=== PATIENT | female | born 1950 | race Caucasian/White ===

== ENCOUNTER → 2016-12-22 | Day surgery (SDC) | payer OTHER ==
[2016-12-09 08:36] VITALS: Ht 157.5 cm; Wt 75.9 kg
[~2016-12-22] VITALS: Ht 157.5 cm; Wt 75.9 kg
[~2016-12-22] MED LIST: 500ML BSS 0.3ML EPI 1:1000PF IRRIG ONE; ACETAMINOPHEN 325 MG TAB PO PRN; ALBUAER INH; AMVISC PLUS 0.8ML SYRINGE INT OCU ONE; ATROPINE SULFATE 0.1 MG/ML 5ML SYR IV PRN; BROM0.07 OPL; BSS FLUSH ONE; CALC600T37 PO; CHOL20009 PO; EpHEDrine SULFATE INJ 50 MG/ML AMP IV PRN; EpINEphrine INJ 1MG/ML AMP 1 MG/ML AMP ONE; GABA-112 PO; GABA1CAP PO; LACTATED RINGER'S 1000ML 500 ML IV SCH; LEVA1.258 INH; LIDOCAINE 3.5% OPH GEL PER APPLICATION CHARGE ONE; LIDOCAINE HCL 1% MPF 2 ML VIAL ONE; LORA-741 PO; LORA10TA51 PO; LPT10 PO; MIDAZOLAM HCL 1 MG/ML 2ML VIAL ONE; OCUCOAT 1 ML SOLN IO ONE; PANT40TA PO; PHENYLEPHRINE HCL 10% OP SOLN 5 ML BTL OPL ONE; POVIDONE-IODINE OP SOLN 30 ML BTL ONE; PRED1SUS3 OPL; PROPARACAINE 0.5% OP SOLN PER DROP CHARGE OPL SCH; PROPARACAINE HCL 0.5% OP SOLN 15 ML BTL OPL ONE; SPRIN/30 INH; SYMIN160 INH; TOBRAMYCIN/DEXAMETHASONE OPH OINT PER APPLN CHARGE ONE
[2016-12-22] MEDS: GATIFLOXACIN OP SOLN PER DROP CHARGE OPL SCH ×2 (07:08→09:18)
--- NOTE | 2016-12-22 09:03 | History & Physical Bridge - [place] ---
H&P Re-Evaluation Bridge Note: I have examined the patient, reviewed the History & Physical and in the interval since the performance of the History & Physical I have noted the following changes of clinical significance: Diagnosis: Left Cataract Procedure: Left Cataract Removal with femtosecond laser with Lens Implant No changes noted
[2016-12-22] MEDS: PHENYLEPHRINE HCL 2.5% OP SOLN PER DROP CHARGE OPL SCH ×2 (09:04→09:10)
[2016-12-22] MEDS: TROPICAMIDE 1% OP SOLN PER DROP CHARGE OPL SCH ×2 (09:05→09:11)
[2016-12-22] MEDS: CYCLOPENTOLATE HCL 1% OP SOLN PER DROP CHARGE OPL SCH ×2 (09:06→09:12)
[2016-12-22] MEDS: KETOROLAC 0.5% OP SOLN PER DROP CHARGE OPL SCH ×2 (09:07→09:13)
--- NOTE | 2016-12-22 10:05 | Discharge Instructions-SurgCtr ---
Discharge Instructions Visit Reason for Visit: Cataract Left Eye Discharge Discharge Diagnosis / Problem: cataract Discharge Goals Goal(s): Improve function Activity Recommendations Activity Limitations: per Instructions/Follow-up section Anesthesia . Post Anesthesia Instructions: If you have had General Anesthesia or IV Sedation: * Do not drive today. * Resume driving when surgeon permits. * Do not make important decisions or sign legal documents today. * Call surgeon for: 1. Temperature elevations greater than 101 degrees F. 2. Uncontrollable pain. 3. Excessive bleeding. 4. Persistent nausea and vomiting. 5. Medication intolerance (nausea, vomiting or rash). * For nausea and vomiting use only clear liquids such as: tea, soda, bouillon until nausea subsides, then gradually increase diet as tolerated. * If you have any concerns or questions, call your surgeon's office. If physician is unavailable and it is an emergency, call 911 or go to the nearest emergency room. . Instructions / Follow-Up Instructions / Follow-Up ACTIVITY RECOMMENDATIONS: * No strenuous lifting, jogging or running for 4 days * No swimming or yard work for 1 week. * Limited bending is permitted, such as putting on shoes. RETURN TO SCHOOL/WORK: No work until seen by physician in office. MEDICATIONS: Resume previous medications unless instructed otherwise by your surgeon. This includes eye drops for glaucoma. Zymaxid/Gatifloxacin (barth cap) - one drop every 2 hours until bedtime Nevanac/Ilevro/Prolensa/Ketorolac (mims cap) - one drop every 4 hours until bedtime Prednisolone (white/pink cap, SHAKE WELL) - one drop every 2 hours until bedtime Starting tomorrow - all 3 drops every 4 hours until seen in the office Optive drops - as needed for discomfort SPECIAL CARE INSTRUCTIONS: * Wear eyeshield when sleeping, for four nights. * You may wear your own glasses or sunglasses while awake. * You may read or watch TV * You may shower and wash your face, but be gentle around the eye and pat dry. * Blurry vision and mild irritation are normal. * Call office if pain is more severe or vision becomes dark at . FOLLOW UP VISIT: Follow-up with Dr Dumont tomorrow. Procedures Procedures Performed: Left Cataract Phacoemulsification With Intraocular Lens Implant Pending Studies Studies pending at discharge: no Medical Emergencies . Who to Call and When: Medical Emergencies: If at any time you feel your situation is an emergency, please call 911 immediately. . Non-Emergent Contact Non-Emergency issues call your: Risk Specialist . . "Provider Documentation" section prepared by Derek Dumont.
--- NOTE | 2016-12-22 10:06 | [facility] Operative Report ---
Operative Report Date of Service Dec 22, 2016. Operative Report 1. PREOPERATIVE DIAGNOSIS: Cataract of the left eye. 2. POSTOPERATIVE DIAGNOSIS: Same. 3. PROCEDURE: Phacoemulsification with femtosecond laser intraocular lens implantation of the left eye. SURGEON: Dr. Derek Dumont. ANESTHESIA: Topical Lidocaine gel, 1% Non- Preserved intracameral Lidocaine, and monitored intravenous sedation. INDICATIONS FOR THE PROCEDURE: The patient is a 66 - year-old female with a history of cataract of the left eye causing significant visual impairment. The details of the proposed procedure were explained to the patient who asked appropriate questions and following discussion of all risks, benefits and alternatives agreed to have the procedure done. 4. OPERATION AND FINDINGS: DESCRIPTION OF PROCEDURE: After informed consent was obtained, the patient was brought to the Laser room at the [facility]. After docking with the LenSx Laser the capsulorhexis, lens chopping, and primary corneal incision were accomplished. The patient was brought to the Operating Room at the [facility]. The patient was placed in a supine position and then the left eye was prepped and draped in the usual sterile fashion for intraocular surgery. A drop of topical Lidocaine gel was placed in the operative eye. A wire lid speculum was then placed in the fornices. A corneal paracentesis was then created temporally. The Non-Preserved Lidocaine was then instilled into the anterior chamber. The anterior chamber was then pressurized with viscoelastic. A 2.0 mm clear corneal incision was then created temporally. A cystotome was inserted into the anterior chamber and used to verify a continuous curvilinear capsulorrhexis. Hydrodissection was accomplished with balanced salt solution. Phacoemulsification of the lens nucleus was then performed in a standard [id number] technique. The phaco time was 21 seconds with an average power of 6 %. The remaining cortical material was removed using irrigation aspiration. The capsular bag was then filled with viscoelastic. A Bausch [employer] Lomb MI60L +19.5 diopters lens was then loaded into the injector and injected into the capsular bag. The remaining viscoelastic was removed with the irrigation aspiration handpiece. The wound was hydrated and then checked and found to be watertight. The intraocular pressure was checked and found to be adequate. The wire lid speculum was removed and the patient's face was cleaned and dried. TobraDex ointment was placed in the inferior fornix. The patient was discharged to the Recovery Room having tolerated the procedure well. There were no complications. The patient will be seen tomorrow in the office for follow-up. I attest to the content of the Intraoperative Record and any orders documented therein. Any exceptions are noted below.
[2016-12-22 10:09] VITALS: TEMP 36.8
--- NOTE | 2016-12-22 10:12 | Anesthesia Progress Nt - [facility] ---
Anesthesia Post Op Note Date & Time Dec 22, 2016 at 10:12 Vital Signs Pain Intensity: 0 Vital Signs Past 12 Hours Date Time Temp Pulse Resp B/P Pulse Ox O2 Delivery O2 Flow Rate FiO2 12/22/16 10:09 36.8 77 16 122/80 100 Room Air 12/22/16 09:35 68 16 111/81 97 12/22/16 09:28 68 16 96 12/22/16 08:31 36.7 87 16 118/81 96 Room Air Notes Mental Status: alert / awake / arousable, participated in evaluation Pt Amnestic to Procedure: Yes Nausea / Vomiting: adequately controlled Pain: adequately controlled Airway Patency, RR, SpO2: stable & adequate BP & HR: stable & adequate Hydration State: stable & adequate Anesthetic Complications: no major complications apparent
[2016-12-22 10:31] VITALS: BP 122/71; PULSE 83; O2SAT 98
== END | disposition home or self-care (01) ==
LOC: X.SURG 08:21
PROVIDERS: ATTEND Ophthalmology
DX: H26.9 Unspecified cataract (principal); H54.7 Unspecified visual loss; K21.9 Gastro-esophageal reflux disease without esophagitis; J45.909 Unspecified asthma, uncomplicated; G25.81 Restless legs syndrome; F41.9 Anxiety disorder, unspecified; E78.5 Hyperlipidemia, unspecified

== ENCOUNTER → 2016-12-28 | Outpatient (CLI) | payer OTHER ==
[~2016-12-28] MED LIST changes: -500ML BSS 0.3ML EPI 1:1000PF IRRIG ONE; -ACETAMINOPHEN 325 MG TAB PO PRN; -AMVISC PLUS 0.8ML SYRINGE INT OCU ONE; -ATROPINE SULFATE 0.1 MG/ML 5ML SYR IV PRN; -BSS FLUSH ONE; -EpHEDrine SULFATE INJ 50 MG/ML AMP IV PRN; -EpINEphrine INJ 1MG/ML AMP 1 MG/ML AMP ONE; -LACTATED RINGER'S 1000ML 500 ML IV SCH; -LIDOCAINE 3.5% OPH GEL PER APPLICATION CHARGE ONE; -LIDOCAINE HCL 1% MPF 2 ML VIAL ONE; -MIDAZOLAM HCL 1 MG/ML 2ML VIAL ONE; -OCUCOAT 1 ML SOLN IO ONE; -PHENYLEPHRINE HCL 10% OP SOLN 5 ML BTL OPL ONE; -POVIDONE-IODINE OP SOLN 30 ML BTL ONE; -PROPARACAINE 0.5% OP SOLN PER DROP CHARGE OPL SCH; -PROPARACAINE HCL 0.5% OP SOLN 15 ML BTL OPL ONE; -TOBRAMYCIN/DEXAMETHASONE OPH OINT PER APPLN CHARGE ONE
== END | disposition home or self-care (01) ==
LOC: C.MAMM 10:16
PROVIDERS: ATTEND Family Medicine
DX: M85.851 Other specified disorders of bone density and structure, right thigh (principal); M85.852 Other specified disorders of bone density and structure, left thigh; M85.88 Other specified disorders of bone density and structure, other site

== ENCOUNTER → 2017-01-19 | Day surgery (SDC) | payer OTHER ==
[2016-12-30 15:51] VITALS: Ht 157.5 cm; Wt 75.9 kg
[~2017-01-19] VITALS: Ht 157.5 cm; Wt 75.9 kg
[~2017-01-19] MED LIST changes: +500ML BSS 0.3ML EPI 1:1000PF IRRIG ONE; +ACETAMINOPHEN 325 MG TAB PO PRN; +AMVISC PLUS 0.8ML SYRINGE INT OCU ONE; +ATROPINE SULFATE 0.1 MG/ML 5ML SYR IV PRN; +BSS FLUSH ONE; +EpHEDrine SULFATE INJ 50 MG/ML AMP IV PRN; +EpINEphrine INJ 1MG/ML AMP 1 MG/ML AMP ONE; +FENTANYL CITRATE INJ 50 MCG/1 ML 2 ML VIAL IV PRN; +FLUMAZENIL 0.1 MG/1 ML 10 ML VIAL IV PRN; +LABETALOL HCL IV 5 MG/ML 20ML IV PRN; +LACTATED RINGER'S 1000ML 500 ML IV SCH; +LIDOCAINE 3.5% OPH GEL PER APPLICATION CHARGE ONE; +LIDOCAINE HCL 1% MPF 2 ML VIAL ONE; +MEPERIDINE HCL 25 MG/ML CARP IV PRN; +MIDAZOLAM HCL 1 MG/ML 2ML VIAL ONE; +NALOXONE HCL 0.4 MG/1 ML VIAL/CARP IV PRN; +OCUCOAT 1 ML SOLN IO ONE; +ONDANSETRON INJ 2 MG/ML 2 ML VIAL IV PRN; +PHENYLEPHRINE 100MCG/ML 5ML SYR IV PRN; +POVIDONE-IODINE OP SOLN 30 ML BTL ONE; +PROPARACAINE 0.5% OP SOLN PER DROP CHARGE OPR SCH; +TOBRAMYCIN/DEXAMETHASONE OPH OINT PER APPLN CHARGE ONE
[2017-01-19] MEDS: PHENYLEPHRINE HCL 2.5% OP SOLN PER DROP CHARGE OPR SCH ×2 (10:11→10:16)
[2017-01-19] MEDS: TROPICAMIDE 1% OP SOLN PER DROP CHARGE OPR SCH ×2 (10:13→10:17)
[2017-01-19] MEDS: CYCLOPENTOLATE HCL 1% OP SOLN PER DROP CHARGE OPR SCH ×2 (10:13→10:18)
[2017-01-19] MEDS: KETOROLAC 0.5% OP SOLN PER DROP CHARGE OPR SCH ×2 (10:14→10:19)
[2017-01-19] MEDS: GATIFLOXACIN OP SOLN PER DROP CHARGE OPR SCH ×2 (10:15→10:23)
--- NOTE | 2017-01-19 10:44 | History & Physical Bridge - [place] ---
H&P Re-Evaluation Bridge Note: I have examined the patient, reviewed the History & Physical and in the interval since the performance of the History & Physical I have noted the following changes of clinical significance: No changes noted
--- NOTE | 2017-01-19 11:29 | [facility] Operative Report ---
Operative Report Date of Service Jan 19, 2017. Operative Report 1. PREOPERATIVE DIAGNOSIS: Cataract of the right eye. 2. POSTOPERATIVE DIAGNOSIS: Same. 3. PROCEDURE: Phacoemulsification with intraocular lens implantation of the right eye. SURGEON: Dr. Derek Dumont. ANESTHESIA: Topical Lidocaine gel, 1% Non- Preserved intracameral Lidocaine, and monitored intravenous sedation. INDICATIONS FOR THE PROCEDURE: The patient is a 66 - year-old female with a history of cataract of the right eye causing significant visual impairment. The details of the proposed procedure were explained to the patient who asked appropriate questions and following discussion of all risks, benefits and alternatives agreed to have the procedure done. 4. OPERATION AND FINDINGS: DESCRIPTION OF PROCEDURE: After informed consent was obtained, the patient was brought to the Operating Room at the [facility] [address]. The patient was placed in a supine position and then the right eye was prepped and draped in the usual sterile fashion for intraocular surgery. A drop of topical Lidocaine gel was placed in the operative eye. A wire lid speculum was then placed in the fornices. A corneal paracentesis was then created temporally. The Non-Preserved Lidocaine was then instilled into the anterior chamber. The anterior chamber was then pressurized with viscoelastic. A 2.0 mm clear corneal incision was then created temporally. A cystotome was inserted into the anterior chamber and used to create a tear in the anterior lens capsule. This capsular tear was then used to create a small flap and the flap was dragged in a counterclockwise direction in order to create a continuous curvilinear capsulorrhexis. Hydrodissection was accomplished with balanced salt solution. Phacoemulsification of the lens nucleus was then performed in a standard [id number]-[id number] technique. The phaco time was 19 seconds with an average power of 7 %. The remaining cortical material was removed using irrigation aspiration. The capsular bag was then filled with viscoelastic. A Bausch & Lomb MI60L +20.0 diopters lens was then loaded into the injector and injected into the capsular bag. The remaining viscoelastic was removed with the irrigation aspiration handpiece. The wound was hydrated and then checked and found to be watertight. The intraocular pressure was checked and found to be adequate. The wire lid speculum was removed and the patient's face was cleaned and dried. TobraDex ointment was placed in the inferior fornix. The patient was discharged to the Recovery Room having tolerated the procedure well. There were no complications. The patient will be seen tomorrow in the office for follow-up. I attest to the content of the Intraoperative Record and any orders documented therein. Any exceptions are noted below.
--- NOTE | 2017-01-19 11:29 | Discharge Instructions-SurgCtr ---
Discharge Instructions Date of Service Jan 19, 2017. Visit Reason for Visit: Cataract Right Eye Discharge Discharge Diagnosis / Problem: cataract Discharge Goals Goal(s): Improve function Activity Recommendations Activity Limitations: per Instructions/Follow-up section Anesthesia . Post Anesthesia Instructions: If you have had General Anesthesia or IV Sedation: * Do not drive today. * Resume driving when surgeon permits. * Do not make important decisions or sign legal documents today. * Call surgeon for: 1. Temperature elevations greater than 101 degrees F. 2. Uncontrollable pain. 3. Excessive bleeding. 4. Persistent nausea and vomiting. 5. Medication intolerance (nausea, vomiting or rash). * For nausea and vomiting use only clear liquids such as: tea, soda, bouillon until nausea subsides, then gradually increase diet as tolerated. * If you have any concerns or questions, call your surgeon's office. If physician is unavailable and it is an emergency, call 911 or go to the nearest emergency room. . Instructions / Follow-Up Instructions / Follow-Up ACTIVITY RECOMMENDATIONS: * No strenuous lifting, jogging or running for 4 days * No swimming or yard work for 1 week. * Limited bending is permitted, such as putting on shoes. RETURN TO SCHOOL/WORK: No work until seen by physician in office. MEDICATIONS: Resume previous medications unless instructed otherwise by your surgeon. This includes eye drops for glaucoma. Zymaxid/Gatifloxacin (barth cap) - one drop every 2 hours until bedtime Nevanac/Ilevro/Prolensa/Ketorolac (mims cap) - one drop every 4 hours until bedtime Prednisolone (white/pink cap, SHAKE WELL) - one drop every 2 hours until bedtime Starting tomorrow - all 3 drops every 4 hours until seen in the office Optive drops - as needed for discomfort SPECIAL CARE INSTRUCTIONS: * Wear eyeshield when sleeping, for four nights. * You may wear your own glasses or sunglasses while awake. * You may read or watch TV * You may shower and wash your face, but be gentle around the eye and pat dry. * Blurry vision and mild irritation are normal. * Call office if pain is more severe or vision becomes dark at . FOLLOW UP VISIT: Follow-up with Dr Dumont tomorrow. Diet Recommendations Home Diet: resume previous diet Procedures Procedures Performed: Right Cataract Phacoemulsification With Intraocular Lens Implant Pending Studies Studies pending at discharge: no Medical Emergencies . Who to Call and When: Medical Emergencies: If at any time you feel your situation is an emergency, please call 911 immediately. . Non-Emergent Contact Non-Emergency issues call your: Pta . . "Provider Documentation" section prepared by Derek Dumont.
[2017-01-19 11:31] VITALS: TEMP 36.7
--- NOTE | 2017-01-19 11:49 | Anesthesia Progress Nt - [facility] ---
Anesthesia Post Op Note Date & Time Jan 19, 2017 at 11:49 Vital Signs Pain Intensity: 0 Vital Signs Past 12 Hours Date Time Temp Pulse Resp B/P Pulse Ox O2 Delivery O2 Flow Rate FiO2 01/19/17 10:05 36.4 96 20 117/76 95 Room Air Notes Mental Status: alert / awake / arousable, participated in evaluation Pt Amnestic to Procedure: Yes Nausea / Vomiting: adequately controlled Pain: adequately controlled Airway Patency, RR, SpO2: stable & adequate BP & HR: stable & adequate Hydration State: stable & adequate Anesthetic Complications: no major complications apparent
[2017-01-19 12:00] VITALS: BP 129/81; PULSE 84; O2SAT 96
== END | disposition home or self-care (01) ==
LOC: X.SURG 09:52
PROVIDERS: ATTEND Ophthalmology
DX: H26.9 Unspecified cataract (principal); J45.909 Unspecified asthma, uncomplicated; M19.90 Unspecified osteoarthritis, unspecified site; Z98.42 Cataract extraction status, left eye; F41.9 Anxiety disorder, unspecified; Z88.5 Allergy status to narcotic agent; Z88.1 Allergy status to other antibiotic agents; Z68.30 Body mass index [BMI] 30.0-30.9, adult

== ENCOUNTER → 2017-02-10 | Outpatient (CLI) | payer OTHER ==
[~2017-02-10] MED LIST changes: -500ML BSS 0.3ML EPI 1:1000PF IRRIG ONE; -ACETAMINOPHEN 325 MG TAB PO PRN; -AMVISC PLUS 0.8ML SYRINGE INT OCU ONE; -ATROPINE SULFATE 0.1 MG/ML 5ML SYR IV PRN; -BSS FLUSH ONE; -EpHEDrine SULFATE INJ 50 MG/ML AMP IV PRN; -EpINEphrine INJ 1MG/ML AMP 1 MG/ML AMP ONE; -FENTANYL CITRATE INJ 50 MCG/1 ML 2 ML VIAL IV PRN; -FLUMAZENIL 0.1 MG/1 ML 10 ML VIAL IV PRN; -LABETALOL HCL IV 5 MG/ML 20ML IV PRN; -LACTATED RINGER'S 1000ML 500 ML IV SCH; -LIDOCAINE 3.5% OPH GEL PER APPLICATION CHARGE ONE; -LIDOCAINE HCL 1% MPF 2 ML VIAL ONE; -MEPERIDINE HCL 25 MG/ML CARP IV PRN; -MIDAZOLAM HCL 1 MG/ML 2ML VIAL ONE; -NALOXONE HCL 0.4 MG/1 ML VIAL/CARP IV PRN; -OCUCOAT 1 ML SOLN IO ONE; -ONDANSETRON INJ 2 MG/ML 2 ML VIAL IV PRN; -PHENYLEPHRINE 100MCG/ML 5ML SYR IV PRN; -POVIDONE-IODINE OP SOLN 30 ML BTL ONE; -PROPARACAINE 0.5% OP SOLN PER DROP CHARGE OPR SCH; -TOBRAMYCIN/DEXAMETHASONE OPH OINT PER APPLN CHARGE ONE
[2017-02-10 19:43] LABS: THYROID STIMULATING HORMONE 0.05 uIu/ml (0.300-4.500)
== END | disposition home or self-care (01) ==
LOC: C.LABPBG 12:47
PROVIDERS: ATTEND Family Medicine
DX: R94.6 Abnormal results of thyroid function studies (principal)

== ENCOUNTER → 2017-03-03 | Outpatient (CLI) | payer OTHER ==
[2017-03-03 18:13] LABS: ALKALINE PHOSPHATASE 111 U/L (45-117); ALT/SGPT 34 U/L (12-78); AST/SGOT 24 U/L (15-37); BLOOD UREA NITROGEN 19 mg/dl (7-18); CARBON DIOXIDE 29 mmol/L (21-32); CHLORIDE 109 mmol/L (98-107); FERRITIN 81.5 ng/ml (8.0-388.0); GLUCOSE 86 mg/dl (70-99); HDL CHOLESTEROL 61 mg/dl; POTASSIUM 4.2 mmol/L (3.5-5.1); SODIUM 144 mmol/L (136-145); TRIGLYCERIDES 204 mg/dl (0-150); VERY LOW DENSITY LIPOPROT CALC 41 mg/dl
[2017-03-03 18:14] LABS: BASO % 0.7 %; BASO ABS # 0.04 K/uL (0-0.2); COMPLETE YES; HEMATOCRIT 39.2 % (37-47); IG% 0.7 %; LYMPH % 34.9 %; MEAN CELL VOLUME 84.5 fL (80-100); MEAN CORPUSCULAR HEMOGLOBIN 28.4 pg (25-34); MEAN CORPUSCULAR HGB CONC 33.7 g/dl (32-36); MEAN PLATELET VOLUME 9.4 fL (7.4-10.4); MONO % 8.6 %; NEUT % 51.1 %; PLATELET COUNT 263 K/uL (130-400); RED BLOOD COUNT 4.64 M/uL (4.2-5.4); WHITE BLOOD COUNT 5.45 K/uL (4.8-10.8)
[2017-03-03 18:18] LABS: CHOLESTEROL 176 mg/dl (0-200); CHOLESTEROL/HDL RATIO 2.9; LDL CHOLESTEROL CALCULATED 74 mg/dl; THYROID STIMULATING HORMONE 0.082 uIu/ml (0.300-4.500)
--- NOTE | 2017-03-09 11:19 | CODING QUERY MEDICAL NECESSITY ---
CQSUPPORTING DIAGNOSIS NEEDED A supporting diagnosis is required for the test/procedure performed on this patient in order for us to be reimbursed by the patient's insurance. Please provide a supporting diagnosis for the following test/procedure listed below next to the test name along with your signature. *If there is no additional diagnosis for this patient that would support the following test/procedure please document that below next to the test/procedure. Test(s)/Procedure(s) that require a supporting diagnosis: DOS 03/03/17 VITAMIN D VITAMIN B12 Provider Signature: Date: Thank you Hallie Preciado Health Information Management Once completed, please kindly fax back to [phone] For questions please call [phone]
== END | disposition home or self-care (01) ==
LOC: C.LABPBG 11:30
PROVIDERS: ATTEND Family Medicine
DX: Z00.00 Encounter for general adult medical examination without abnormal findings (principal); R94.6 Abnormal results of thyroid function studies; M85.80 Other specified disorders of bone density and structure, unspecified site; G25.81 Restless legs syndrome; E55.9 Vitamin D deficiency, unspecified; G62.9 Polyneuropathy, unspecified

== ENCOUNTER → 2017-04-14 | Outpatient (CLI) | payer OTHER ==
[2017-04-14 12:32] LABS: THYROID STIMULATING HORMONE 0.574 uIu/ml (0.300-4.500)
[2017-04-17 19:09] LABS: TSI 512 % baseline (<140)
== END | disposition home or self-care (01) ==
LOC: C.LAB1850 10:10
PROVIDERS: ATTEND Internal Medicine Endocrinology, Diabetes & Metabolism
DX: E05.90 Thyrotoxicosis, unspecified without thyrotoxic crisis or storm (principal); E53.8 Deficiency of other specified B group vitamins

== ENCOUNTER → 2017-04-26 | Outpatient (CLI) | payer OTHER ==
[2017-04-26 17:54] LABS: THYROID STIMULATING HORMONE 0.818 uIu/ml (0.300-4.500)
== END | disposition home or self-care (01) ==
LOC: C.LABPBG 14:32
PROVIDERS: ATTEND Internal Medicine Endocrinology, Diabetes & Metabolism
DX: E05.00 Thyrotoxicosis with diffuse goiter without thyrotoxic crisis or storm (principal)

== ENCOUNTER → 2017-06-23 | Outpatient (CLI) | payer OTHER ==
[2017-06-23 13:22] LABS: MAGNESIUM 2.1 mg/dl (1.8-2.4); PHOSPHORUS 3.5 mg/dl (2.5-4.9)
[2017-06-24 14:57] LABS: GAMMA GLOBULIN 1.1 G/DL (0.8-1.7); TOTAL PROTEIN 6.8 G/DL (6.2-8.3)
== END | disposition home or self-care (01) ==
LOC: C.LAB1850 09:54
PROVIDERS: ATTEND Internal Medicine Endocrinology, Diabetes & Metabolism
DX: E05.90 Thyrotoxicosis, unspecified without thyrotoxic crisis or storm (principal); M85.80 Other specified disorders of bone density and structure, unspecified site; R05 Cough

== ENCOUNTER → 2017-06-23 | Outpatient (CLI) | payer OTHER ==
--- NOTE | 2017-06-23 12:21 | DIAGNOSTIC IMAGING REPORT ---
CHEST 2 VIEWS ROUTINE HISTORY: COUGH COMPARISON: Chest 09/25/2016. FINDINGS: Small linear density within left midlung zone favor scarring or atelectasis. Possible 9 mm right suprahilar nodule. No focal lung consolidations to suggest pneumonia. No evidence for pulmonary edema.. No pleural effusions. No pneumothorax. The heart is normal in size. IMPRESSION: 1. No focal lung consolidations to suggest pneumonia. 2. Possible 9 mm right suprahilar nodule. This is likely due to the overlapping pulmonary vessels. Therefore, recommend follow-up PA view of the chest with shallow oblique views for further evaluation. Electronically signed by: Jones Canseco M.D. 06/23/2017 12:19 PM Dictated Date/Time: 06/23/2017 12:14 PM
== END | disposition home or self-care (01) ==
LOC: C.RAD1850 11:57
PROVIDERS: ATTEND Physician Assistant
DX: R05 Cough (principal)

== ENCOUNTER → 2017-06-25 | Outpatient (CLI) | payer OTHER ==
[2017-06-25 14:13] LABS: CALCIUM URINE < 5.0 mg/dl; URINE COLLECTION TIME 24 HOURS
== END | disposition home or self-care (01) ==
LOC: C.LABSPEC 09:21
PROVIDERS: ATTEND Internal Medicine Endocrinology, Diabetes & Metabolism
DX: M85.80 Other specified disorders of bone density and structure, unspecified site (principal)

== ENCOUNTER → 2017-07-19 | Outpatient (CLI) | payer OTHER ==
--- NOTE | 2017-07-19 12:23 | DIAGNOSTIC IMAGING REPORT ---
CHEST 2 VIEWS ROUTINE HISTORY: 66 years-old Female ABNORMAL CHEST XRAY follow-up study without acute symptoms. Pulmonary nodule seen on comparison dated 06/23/2017. COMPARISON: Chest radiograph 06/23/2017 TECHNIQUE: PA and lateral views of the chest FINDINGS: Cardiac silhouette is upper limits of normal. There is atherosclerosis of the aorta. No pneumothorax, pleural effusion or focal airspace consolidation. No overt pulmonary edema. Previously noted 9 mm right suprahilar nodular opacity appears less discrete on today's study. The bones are grossly intact. IMPRESSION: Previously noted 9 mm right suprahilar nodular opacity appears less discrete on today's study and appears most compatible with linear parenchymal scarring or composite density artifact. In a high-risk patient, further evaluation with chest CT may be considered. The above report was generated using voice recognition software. It may contain grammatical, syntax or spelling errors. Electronically signed by: Ortega Rios M.D. 07/19/2017 12:21 PM Dictated Date/Time: 07/19/2017 12:19 PM
== END | disposition home or self-care (01) ==
LOC: C.RAD1850 11:48
PROVIDERS: ATTEND Physician Assistant
DX: R93.8 Abnormal findings on diagnostic imaging of other specified body structures (principal)

== ENCOUNTER → 2017-08-05 | Outpatient (CLI) | payer OTHER | END | disposition home or self-care (01) | LOC: C.LABPBG 13:46 | PROVIDERS: ATTEND Internal Medicine Endocrinology, Diabetes & Metabolism | DX: E05.00 Thyrotoxicosis with diffuse goiter without thyrotoxic crisis or storm (principal) ==

== ENCOUNTER → 2017-12-17 | Outpatient (CLI) | payer OTHER ==
[~2017-12-17] MED LIST changes: +GABA100C13 PO; -GABA1CAP PO
== END | disposition home or self-care (01) ==
LOC: C.LABPBG 12:06
PROVIDERS: ATTEND Internal Medicine
DX: R94.6 Abnormal results of thyroid function studies (principal)

== ENCOUNTER → 2018-02-08 | Outpatient (CLI) | payer OTHER ==
--- NOTE | 2018-02-08 13:17 | DIAGNOSTIC IMAGING REPORT ---
CHEST 2 VIEWS ROUTINE CLINICAL HISTORY: R05 [id number] dyspnea COMPARISON STUDY: 07/19/2017 FINDINGS: The lungs are considered clear. Mild chronic basilar interstitial prominence. Unchanging focal linear scar right suprahilar region. Mild degenerative changes thoracic spine. IMPRESSION: Chronic change. No acute process. The above report was generated using voice recognition software. It may contain grammatical, syntax or spelling errors. Electronically signed by: Zoran Zuniga M.D. 02/08/2018 1:16 PM Dictated Date/Time: 02/08/2018 1:15 PM
== END | disposition home or self-care (01) ==
LOC: C.RAD1850 13:00
PROVIDERS: ATTEND Physician Assistant
DX: R05 Cough (principal)

== ENCOUNTER → 2018-02-28 | Outpatient (CLI) | payer OTHER | END | disposition home or self-care (01) | LOC: C.LAB1850 14:16 | PROVIDERS: ATTEND Internal Medicine Endocrinology, Diabetes & Metabolism | DX: E55.9 Vitamin D deficiency, unspecified (principal); E05.00 Thyrotoxicosis with diffuse goiter without thyrotoxic crisis or storm ==

== ENCOUNTER → 2018-05-18 | Outpatient (CLI) | payer OTHER ==
[~2018-05-18] MED LIST changes: +GABA-1693 PO; -GABA100C13 PO
== END | disposition home or self-care (01) ==
LOC: C.LABSPEC 17:11
PROVIDERS: ATTEND Podiatrist Foot & Ankle Surgery
DX: L97.509 Non-pressure chronic ulcer of other part of unspecified foot with unspecified severity (principal)

== ENCOUNTER 2020-05-14 14:27 | Inpatient (IN) ==
[2020-05-14] MEDS ORDERED: ALBUT/IPRATROP 3MG/0.5MG NEB 3 ML VIAL NEB STA ×2 (14:41→15:51)
[2020-05-14] MEDS ORDERED: methylPREDNISolone 125 MG/2 ML VIAL IV STA (14:41)
--- NOTE | 2020-05-14 14:56 | Emergency Department Note ---
Impression & Plan Asthma exacerbation ED Provider Note NAME: KALEB ROCA AGE: 69 SEX: F : 1950 ARRIVES VIA: Walk-In INFORMANT: Patient, ED PROVIDER(S): Johnny Ch DO CHIEF COMPLAINT: Shortness of breath HPI: The patient is a 69-year-old female who has a history of asthma who presented to the emergency department at the request of her primary rehab spec. The patient states that she has been having increasing shortness of breath over the last 2 to 3 weeks. She is been noticing a cough which is nonproductive. She denies having any fever or travel. She is had no specific exposure to COVID-19. The patient has not recently been on steroids. She states that she has been using her usual inhalers with only minimal relief. She denies having any nausea or vomiting. She denies having any chest pain. She has no lower extremity swelling or pain. She states symptoms are worsened with any exertion. She states she does have some relief at rest. The patient states her symptoms are moderate to severe at this time. ROS: See above HPI for pertinent positives & negatives. A total of 10 systems reviewed and were otherwise negative. PAST MEDICAL HISTORY: See Below PAST SURGICAL HISTORY: See Below FAMILY HISTORY: See Below SOCIAL HISTORY: See Below HOME MEDICATIONS: See Below ALLERGIES: See Below VITALS: See Below PHYSICAL EXAMINATION: GENERAL: The patient is awake and alert. She is somewhat anxious appearing. EYES: The conjunctivae are clear. The pupils are round and reactive. EARS, NOSE, MOUTH AND THROAT: The nose is without any evidence of any deformity. The patient was masked. NECK: The neck is nontender and supple. RESPIRATORY: Shallow respirations were noted. Diminished breath sounds noted throughout. There was significant conversational dyspnea as well as pursed lip breathing. CARDIOVASCULAR: Regular rate and rhythm noted there no murmurs rubs or gallops normal S1 normal S2. GASTROINTESTINAL: The abdomen is soft. Abdomen is nontender. MUSCULOSKELETAL/EXTREMITIES: There is no evidence of gross deformity full range of motion is noted in the hips and shoulders. SKIN: There is no obvious evidence of any rash. There are no petechiae, pallor or cyanosis noted. No calf tenderness was noted. NEUROLOGIC: Patient is awake alert and oriented x3. MEDICAL DECISION MAKING: The patient is a 69-year-old female who presented to the emergency department for an evaluation of difficulty breathing. The patient has a history of asthma and felt that over the last week and a half she was having an exacerbation of her asthma. She presented to her rehab spec initially for her routine scheduled visit and at that time was found to have severe dyspnea and bronchospasm. She was sent directly to the emergency department. I did review the rehab spec note. The patient was treated with bronchodilator therapy as well as IV steroids. Chest x-ray revealed no acute disease including no infiltrate or pneumothorax. The patient was reevaluated multiple times. Initially she was having very severe conversational dyspnea and pursed lip breathing. She continues to have some symptoms but is significantly improved compared to previous. I discussed the patient's laboratory and radiographic studies with her. [facility] was also notified about the patient. They will evaluate the patient in the emergency department for further management and disposition. Triage Nursing notes reviewed. Prior medical records reviewed Vital Signs: reviewed and remarkable for hypertension and tachypnea. Differential diagnosis: Reactive airway disease, pneumonia, pneumothorax, COPD, CHF, infections, cardiac ischemia, pulmonary embolism, musculoskeletal, gastrointestinal, as well as other pathologies. ER treatment provided: See below Diagnostics interpreted by me: ECG: EKG was obtained in the emergency department. My interpretation is normal sinus rhythm at 71 bpm. There is no ectopy. There is no acute ST segment abnormalities noted. This was compared to a tracing from September 04, 2016. No significant changes were noted. Cardiac Monitoring: An order was placed for continuous cardiac monitoring. The monitor shows a rate of 88 with sinus rhythm. Laboratory studies: As stated above and show below. Imaging studies: See below Consultation(s): 1640: [facility] hospitalist group was notified about the patient. ED COURSE: Procedures: none PDMP:reviewed and no issues Critical Care: None Past Med/Surg History Medical History Adjustment disorder with depressed mood (Chronic) Arthritis, multiple joint involvement Asthmatic bronchitis with acute exacerbation (Inactive) Colon polyps Dyslipidemia (Chronic) Graves disease (Acute) Sanaz's thyroiditis History of actinic keratosis History of hyperglycemia History of nasal polyp History of sinusitis Hypothyroidism (Chronic) Impaired fasting glucose (Chronic) Osteopenia after menopause (Chronic) Peripheral neuropathy (Chronic) Restless legs syndrome (Chronic) Severe persistent asthma (Chronic) Tachycardia (Inactive) Vitamin B12 deficiency (non anemic) (Chronic) Vitamin D deficiency (Chronic) Surgical History History of bronchoscopy h/o bronchial thermoplasty History of bunionectomy Status post nasal endoscopy with nasal polypectomy Family History Father Myocardial infarction Other Asthma Denies family history of Breast cancer Social History Smoking Status: Never smoker Hx Alcohol Use: No Hx Substance Use: No Preferred Language: [place] Communication Ability: Effective Visual Impairment: No Limitations Hearing Ability: Normal Senior Planning Manager Required: No Beliefs That Will Affect Care: None marital status: / Current Living Situation: Other Current Living Situation Comment: [facility] WITH HER current occupational status: retired Feels Safe at Home: Yes Safety Concerns Comment: NONE Childhood Exposure to Second-Hand Smoke: Yes Seatbelt Use: always Allergies Allergies Allergy/AdvReac Type Severity Reaction Status Date / Time codeine Allergy Intermediate Hives Verified 05/14/20 16:37 theophylline Allergy Unknown HIVES/DIZZI Verified 05/14/20 16:37 NESS Home Meds Home Medications Medication Instructions Recorded Confirmed benzonatate 100 mg capsule 100 mg PO TID PRN 06/01/19 05/14/20 calcium carbonate 600 mg calcium 600 mg PO DAILY tab 06/01/19 05/14/20 (1,500 mg) tablet fluticasone propionate 50 2 sprays INTNAS DAILY 06/01/19 05/14/20 mcg/actuation nasal spray,suspension tiotropium bromide 18 mcg capsule 1 cap INH DAILY 06/01/19 05/14/20 with inhalation device ipratropium bromide 0.02 % 0.5 mg INHALATION Q4H PRN ml 10/07/19 05/14/20 solution for inhalation Previous Rx's Medication Instructions Recorded montelukast 10 mg tablet 10 mg PO DAILY #90 tab 07/04/19 pantoprazole 40 mg tablet,delayed 40 mg PO DAILY #90 tab 07/04/19 release atorvastatin 10 mg tablet 10 mg PO DAILY #90 tab 09/04/19 albuterol sulfate 90 mcg/actuation See Rx Instructions .ROUTE 10/09/19 aerosol inhaler .COMPLEX #3 inhaler escitalopram oxalate 10 mg tablet 10 mg PO DAILY #90 tab 10/09/19 gabapentin 100 mg capsule 100 mg PO .COMPLEX #120 cap 10/09/19 levalbuterol HCl 1.25 mg/3 mL 1.25 mg INHALATION Q4H PRN #270 ml 11/24/19 solution for nebulization budesonide-formoterol HFA 160 2 puffs INH BID #10.2 gm 04/02/20 mcg-4.5 mcg/actuation aerosol inhaler lorazepam 0.5 mg tablet 0.5 mg PO BID PRN #30 tab 04/02/20 calcitriol 0.25 mcg capsule 0.25 mcg PO DAILY #90 cap 05/07/20 levothyroxine 75 mcg tablet 75 mcg PO DAILY #90 tab 05/07/20 Results & Data (ED) Vital Signs Vital Signs - 24 hr 05/14/20 14:32 05/14/20 15:28 05/14/20 15:47 Temperature 36.8 C Temperature Source Oral Pulse Rate 92 H Pulse Rate [Right Finger] 77 Pulse Rhythm Regular Respiratory Rate 26 H 20 Respiratory Effort / Characteristics Labored Short of Breath SOB on Exertion Non-Labored Spontaneous Respiratory Pattern Regular Tachypnea Blood Pressure 150/84 H Blood Pressure Mean 106 Pulse Oximetry 95 94 97 Oxygen Delivery Method Room Air Room Air Room Air Sepsis Recent Fever Within 48 Hours No Sepsis New/Unexplained Change in Mental Status No Sepsis Action Taken by Nursing No Action Required 05/14/20 16:05 Temperature Temperature Source Pulse Rate Pulse Rate [Right Finger] 78 Pulse Rhythm Respiratory Rate 20 Respiratory Effort / Characteristics Non-Labored Spontaneous Respiratory Pattern Blood Pressure Blood Pressure Mean Pulse Oximetry 97 Oxygen Delivery Method Room Air Sepsis Recent Fever Within 48 Hours Sepsis New/Unexplained Change in Mental Status Sepsis Action Taken by Group Home Medications Current Medication List: was personally reviewed by me Laboratory Data Attestation: I reviewed the patient's lab results. Result diagrams: 05/14/20 15:30 05/14/20 15:30 Lab Results 05/14/20 05/14/20 05/14/20 Range/Units 15:30 15:30 15:30 WBC 8.08 (4.8-10.8) K/uL RBC 4.98 (4.2-5.4) M/uL Hgb 14.6 (12.0-16.0) g/dL Hct 43.0 (37-47) % MCV 86.3 (80-100) fL MCH 29.3 (25-34) pg MCHC 34.0 (32-36) g/dL RDW Std Deviation 42.1 (36.4-46.3) fL RDW Coeff of Avis 13.3 (11.5-14.5) % Plt Count 258 (130-400) K/uL MPV 9.2 (7.4-10.4) fL Immature Gran % (Auto) 0.2 % Neut % (Auto) 76.3 % Lymph % (Auto) 19.8 % [place] % (Auto) 3.1 % Eos % (Auto) 0.4 % Baso % (Auto) 0.2 % Neut # (Auto) 6.16 (1.4-6.5) K/uL Lymph # (Auto) 1.60 (1.2-3.4) K/uL [place] # (Auto) 0.25 (0.11-0.59) K/uL Eos # (Auto) 0.03 (0-0.5) K/uL Baso # (Auto) 0.02 (0-0.2) K/uL Immature Gran # (Auto) 0.02 (0.00-0.02) K/uL PT 10.6 (9.0-12.0) Seconds INR 1.0 (0.9-1.1) APTT 24.9 (21.0-31.0) Seconds PTT Ratio 0.9 VBG pH (7.36-7.41) VBG pCO2 (38-50) mmHg VBG pO2 mmHg VBG HCO3 mmol/L VBG O2 Saturation % VBG Base Excess mEq/L Barometric Pressure mm/Hg Sodium 142 (136-145) mmol/L Potassium 4.7 (3.5-5.1) mmol/L Chloride 111 H (98-107) mmol/L Carbon Dioxide 23 (21-32) mmol/L Anion Gap 8.0 (3-11) BUN 14 (7-18) mg/dl Creatinine 0.83 (0.6-1.2) mg/dl Est Cr Clr Drug Dosing 60.9 ml/min Est GFR ( Amer) 82.8 Est GFR (Non-Af Amer) 71.4 BUN/Creatinine Ratio 17.1 (10-20) Glucose 98 (70-99) mg/dl Calcium 9.4 (8.5-10.1) mg/dl Magnesium 2.2 (1.8-2.4) mg/dl Total Bilirubin 0.4 (0.2-1) mg/dl AST 24 (15-37) U/L ALT 25 (12-78) U/L Alkaline Phosphatase 86 (45-117) U/L Troponin I < 0.015 (0-0.045) ng/ml NT-Pro-B Natriuret Pep 110 (0-900) pg/ml Total Protein 7.8 (6.4-8.2) gm/dl Albumin 3.7 (3.4-5.0) gm/dl Globulin 4.1 H (2.5-4.0) gm/dl Albumin/Globulin Ratio 0.9 (0.9-2) // Range/Units 15:30 WBC (4.8-10.8) K/uL RBC (4.2-5.4) M/uL Hgb (12.0-16.0) g/dL Hct (37-47) % MCV (80-100) fL MCH (25-34) pg MCHC (32-36) g/dL RDW Std Deviation (36.4-46.3) fL RDW Coeff of Avis (11.5-14.5) % Plt Count (130-400) K/uL MPV (7.4-10.4) fL Immature Gran % (Auto) % Neut % (Auto) % Lymph % (Auto) % [place] % (Auto) % Eos % (Auto) % Baso % (Auto) % Neut # (Auto) (1.4-6.5) K/uL Lymph # (Auto) (1.2-3.4) K/uL [place] # (Auto) (0.11-0.59) K/uL Eos # (Auto) (0-0.5) K/uL Baso # (Auto) (0-0.2) K/uL Immature Gran # (Auto) (0.00-0.02) K/uL PT (9.0-12.0) Seconds INR (0.9-1.1) APTT (21.0-31.0) Seconds PTT Ratio VBG pH 7.39 (7.36-7.41) VBG pCO2 47 (38-50) mmHg VBG pO2 31 mmHg VBG HCO3 28 mmol/L VBG O2 Saturation < 60.0 % VBG Base Excess 2.2 mEq/L Barometric Pressure 733.0 mm/Hg Sodium (136-145) mmol/L Potassium (3.5-5.1) mmol/L Chloride (98-107) mmol/L Carbon Dioxide (21-32) mmol/L Anion Gap (3-11) BUN (7-18) mg/dl Creatinine (0.6-1.2) mg/dl Est Cr Clr Drug Dosing ml/min Est GFR ( Amer) Est GFR (Non-Af Amer) BUN/Creatinine Ratio (10-20) Glucose (70-99) mg/dl Calcium (8.5-10.1) mg/dl Magnesium (1.8-2.4) mg/dl Total Bilirubin (0.2-1) mg/dl AST (15-37) U/L ALT (12-78) U/L Alkaline Phosphatase (45-117) U/L Troponin I (0-0.045) ng/ml NT-Pro-B Natriuret Pep (0-900) pg/ml Total Protein (6.4-8.2) gm/dl Albumin (3.4-5.0) gm/dl Globulin (2.5-4.0) gm/dl Albumin/Globulin Ratio (0.9-2) Administered Medications Discontinued Medications Albuterol (Duoneb) 3 ml NEB NOW STA Stop: 05/14/20 14:42 Last Admin: 05/14/20 15:30 Dose: 3 ml Documented by: [id number] Albuterol (Duoneb) 3 ml NEB NOW STA Stop: 05/14/20 15:52 Last Admin: 05/14/20 15:55 Dose: 3 ml Documented by: [id number] Methylprednisolone (Solumedrol) 125 mg IV NOW STA Stop: 05/14/20 14:42 Last Admin: 05/14/20 15:33 Dose: 125 mg Documented by: [id number] Imaging Data Radiologist's Impression: XR chest 1V portable CLINICAL HISTORY: Dyspnea COMPARISON STUDY: Chest radiograph July 19, 2019. FINDINGS: Lung volumes are normal. Lungs are clear. There is no pneumothorax or pleural effusion. Cardiac size is normal. Mediastinal contours are normal. There is no evidence for pulmonary edema. IMPRESSION: No acute cardiopulmonary findings. ACT 112: Negative or not required by law. Electronically signed by: Martin Garcia M.D. 05/14/2020 3:18 PM Dictated: 05/14/20 1517 Transcribed: 05/14/201516 Blood Pressure Blood Pressure Findings: Elevated blood pressure Blood Pressure Disposition: further management by hospitalist Discharge Plan Visit Data Chief Complaint: Respiratory Problems Stated Complaint: HARD TO BREATHEF ED Provider: Johnny Ch Discharge Problem: Asthma exacerbation Patient Disposition: Being Evaluated by Hospitalist Condition: Good Forms Stand Alone Forms: My [employer] Prescriptions Prescriptions: No Action montelukast 10 mg tablet 10 mg PO DAILY Qty: 90 RF: 3 pantoprazole 40 mg tablet,delayed release (DR/EC) 40 mg PO DAILY Qty: 90 RF: 3 atorvastatin 10 mg tablet 10 mg PO DAILY Qty: 90 RF: 3 levalbuterol HCl 1.25 mg/3 mL solution for nebulization 1.25 mg inhalation Q4H PRN (Reason: shortness of breath) Qty: 270 RF: 3 Symbicort 160-4.5 mcg/actuation HFA aerosol inhaler 2 puffs INH BID Qty: 10.2 RF: 6 lorazepam 0.5 mg tablet 0.5 mg PO BID PRN (Reason: anxiety) Qty: 30 RF: 0 levothyroxine 75 mcg tablet 75 mcg PO DAILY Qty: 90 RF: 0 gabapentin 100 mg capsule 100 mg PO .COMPLEX Qty: 120 RF: 5 albuterol sulfate 90 mcg/actuation HFA aerosol inhaler See Rx Instructions .ROUTE .COMPLEX Qty: 3 RF: 3 escitalopram oxalate 10 mg tablet 10 mg PO DAILY Qty: 90 RF: 3 calcitriol 0.25 mcg capsule 0.25 mcg PO DAILY Qty: 90 RF: 0 benzonatate 100 mg capsule 100 mg PO TID PRNRF: 0 calcium carbonate [Calcium 600] 600 mg calcium (1,500 mg) tablet 600 mg PO DAILY RF: 0 fluticasone propionate 50 mcg/actuation spray,suspension 2 sprays INTNAS DAILY RF: 0 Spiriva with HandiHaler 18 mcg capsule, w/inhalation device 1 cap INH DAILY RF: 0 ipratropium bromide 0.02 % solution 0.5 mg inhalation Q4H PRN (Reason: shortness of breath) RF: 0 Referrals Referrals: Demario Varela MD [Primary Care Provider] - Discharge Problem: Asthma exacerbation Qualifiers: Asthma severity: moderate Asthma persistence: persistent Qualified Code(s): J45.41 - Moderate persistent asthma with (acute) exacerbation
--- NOTE | 2020-05-14 15:19 | XRay Report ---
XR chest 1V portable CLINICAL HISTORY: Dyspnea COMPARISON STUDY: Chest radiograph July 19, 2019. FINDINGS: Lung volumes are normal. Lungs are clear. There is no pneumothorax or pleural effusion. Car diac size is normal. Mediastinal contours are normal. There is no evidence for pulmonary edema. IMPRESSION: No acute cardiopulmonary findings. ACT 112: Negative or not required by law. Electronically signed by: Martin Garcia M.D. 05/14/2020 3:18 PM
[2020-05-14 15:42] LABS: Basophils # (auto) 0.02 K/uL (0-0.2); Basophils % (auto) 0.2 %; Eosinophils # (auto) 0.03 K/uL (0-0.5); Eosinophils % (auto) 0.4 %; Hemoglobin 14.6 g/dL (12.0-16.0); Immature Granulocytes # (auto) 0.02 K/uL (0.00-0.02); Immature Granulocytes % (auto) 0.2 %; Lymphocytes % (auto) 19.8 %; Mean Corpuscular Hemoglobin 29.3 pg (25-34); Mean Corpuscular Volume 86.3 fL (80-100); Mean Platelet Volume 9.2 fL (7.4-10.4); Monocytes # (auto) 0.25 K/uL (0.11-0.59); Monocytes % (auto) 3.1 %; Neutrophils # (auto) 6.16 K/uL (1.4-6.5); Neutrophils % (auto) 76.3 %; Platelet Count 258 K/uL (130-400); RDW Coefficient of Variation 13.3 % (11.5-14.5); RDW Standard Deviation 42.1 fL (36.4-46.3); Red Blood Count 4.98 M/uL (4.2-5.4); White Blood Count 8.08 K/uL (4.8-10.8)
[2020-05-14 15:46] LABS: Base Excess VBG 2.2 mEq/L; HCO3 VBG 28 mmol/L; PCO2 VBG 47 mmHg (38-50); PO2 VBG 31 mmHg; pH VBG 7.39 (7.36-7.41)
[2020-05-14 15:47] LABS: Oxygen Saturation VBG < 60.0 %
[2020-05-14 16:08] LABS: Partial Thromboplastin Ratio 0.9; Partial Thromboplastin Time 24.9 Seconds (21.0-31.0); Prothrombin Time 10.6 Seconds (9.0-12.0)
[2020-05-14 16:11] LABS: Alanine Aminotransferase 25 U/L (12-78); Albumin Level 3.7 gm/dl (3.4-5.0); Aspartate Aminotransferase 24 U/L (15-37); BUN Creatinine Ratio 17.1 (10-20); Blood Urea Nitrogen 14 mg/dl (7-18); Calcium 9.4 mg/dl (8.5-10.1); Carbon Dioxide 23 mmol/L (21-32); Chloride 111 mmol/L (98-107); Creatinine Clr Calc Pharmacy 60.9 ml/min; Est GFR (African American) 82.8; Est GFR (Non-African American) 71.4; Glucose 98 mg/dl (70-99); Magnesium 2.2 mg/dl (1.8-2.4); Potassium 4.7 mmol/L (3.5-5.1); Sodium 142 mmol/L (136-145)
[2020-05-14 16:16] LABS: Albumin Globulin Ratio 0.9 (0.9-2); Alkaline Phosphatase 86 U/L (45-117); Bilirubin,Total 0.4 mg/dl (0.2-1); Globulin 4.1 gm/dl (2.5-4.0); NT Pro B Type Natriuretic Pept 110 pg/ml (0-900); Total Protein 7.8 gm/dl (6.4-8.2); Troponin I < 0.015 ng/ml (0-0.045)
--- NOTE | 2020-05-14 18:51 | History & Physical Report ---
Date of Service May 14, 2020 Assessment & Plan (1) Asthma exacerbation: Severe persistent No CXR, lab findings to suggest PNA or COVID-19 and appears to be gradual worsening rather than anything acute over the last few days. Continue outpatient inhalers or hospital formulary equivalents and montelukast duonebs Q4Hr Methylprednisone 40mg IV TID Consider pulmonology consult if not significantly improving given refractory treatment as outpatient Concerning correlation of intermittent hand swelling, peripheral neuropathy and uncontrolled asthma concerning for possible autoimmune disease. Will get ESR/CRP now and PO with relfex with AM labs. Consider further outpatient workup. (2) Shortness of breath on exertion: Initially discussed getting TTE to assess cardiac cause however given significance of exp. wheeze on exam, improvement with prior steroid/inhaler use; SOB appears to be definitively lung related. Although not significantly hypoxic at rest, consider 2 step at discharge as suspect this is when she is significantly SOB. (3) Restless legs syndrome: Continue gabapentin (4) Peripheral neuropathy: Continue gabapentin - unclear etiology from patient but had prior workup with [facility] neurology (5) Hypothyroidism: TSH WNL Continue levothyroxine 75 mcg PO daily (6) Vitamin B12 deficiency (non anemic): Unclear if this caused peripheral neuropathy. Consider repeating as outpatient - last level normal in 2018 but not suspected to be contributing towards acute shortness of breath (7) GERD (gastroesophageal reflux disease): Continue pantoprazole 40mg PO QPM (8) Adjustment disorder with depressed mood: Continue lexapro 10 mg PO daily Lorazepam PRN (9) Dyslipidemia: Continue atorvastatin 10mg PO daily Admission and Anticipated Discharge Date Admission Date: 05/14/2020 History of Present Illness Primary Care Provider: MD Chhaya Hudson us a 69 year old female with severe persistent asthma who presents to the ER on the advice of her health type technician due to with acute on chronic shortness of breath mainly on exertion. She notes no acute deterioration over the last few days. This has been more of a gradual deterioration over the last 4 weeks with her needing increasing albuterol use as per previous steroid taper had been weaned off. Associated chronic non-productive cough, worse at night. Usually her asthma is worse this time of year which she suspects is due to allergies and postnasal drip. She reports being out of her usual nasal spray for a few days but hasn't noticed a big increase in her PND. ROS concerning for possible autoimmune disorder with intermittent b/l hand MCP swelling, history of Grave's/Sanaz's disease and idiopathic peripheral neuropathy. She reports no prior evaluation by rheumatology. Allergies Allergy/AdvReac Type Severity Reaction Status Date / Time codeine Allergy Intermediate Hives Verified 05/14/20 16:37 theophylline Allergy Unknown HIVES/DIZZI Verified 05/14/20 16:37 NESS Home Medications Home Medications Medication Instructions Recorded Confirmed Type benzonatate 100 mg capsule 100 mg PO TID PRN 06/01/19 05/14/20 History calcium carbonate 600 mg calcium 600 mg PO QAM tab 06/01/19 05/14/20 History (1,500 mg) tablet fluticasone propionate 50 2 sprays INTNAS DAILY PRN 06/01/19 05/14/20 History mcg/actuation nasal spray,suspension tiotropium bromide 18 mcg capsule 1 cap INH QAM 06/01/19 05/14/20 History with inhalation device atorvastatin 10 mg tablet 10 mg PO DAILY #90 tab 09/04/19 05/14/20 Rx ipratropium bromide 0.02 % 0.5 mg INHALATION Q4H PRN ml 10/07/19 05/14/20 History solution for inhalation escitalopram oxalate 10 mg tablet 10 mg PO DAILY #90 tab 10/09/19 05/14/20 Rx budesonide-formoterol HFA 160 2 puffs INH BID #10.2 gm 04/02/20 05/14/20 Rx mcg-4.5 mcg/actuation aerosol inhaler albuterol sulfate 2 puff INHALATION Q4H PRN 05/14/20 05/14/20 History calcitriol 0.25 mcg PO QAM 05/14/20 05/14/20 History cholecalciferol (vitamin D3) 0 mcg PO DAILY 05/14/20 05/14/20 History [Vitamin D3] gabapentin 100 mg PO DIRECTED 05/14/20 05/14/20 History levalbuterol HCl 1.25 mg INHALATION Q4H PRN 05/14/20 05/14/20 History levothyroxine 75 mcg PO QAM 05/14/20 05/14/20 History lorazepam 0.5 mg PO BID PRN 05/14/20 05/14/20 History montelukast 10 mg PO QAM 05/14/20 05/14/20 History pantoprazole 40 mg PO QPM 05/14/20 05/14/20 History Past Med/Surg History Medical History Adjustment disorder with depressed mood (Chronic) Arthritis, multiple joint involvement Asthmatic bronchitis with acute exacerbation (Inactive) Colon polyps Dyslipidemia (Chronic) Graves disease (Acute) Sanaz's thyroiditis History of actinic keratosis History of hyperglycemia History of nasal polyp History of sinusitis Hypothyroidism (Chronic) Impaired fasting glucose (Chronic) Osteopenia after menopause (Chronic) Peripheral neuropathy (Chronic) Restless legs syndrome (Chronic) Severe persistent asthma (Chronic) Tachycardia (Inactive) Vitamin B12 deficiency (non anemic) (Chronic) Vitamin D deficiency (Chronic) Surgical History History of bronchoscopy h/o bronchial thermoplasty History of bunionectomy Status post nasal endoscopy with nasal polypectomy Family History Father Myocardial infarction Other Asthma Denies family history of Breast cancer Social History Smoking Status: Never smoker Second Hand Exposure: Yes; Hx Alcohol Use: No Hx Substance Use: No Preferred Language: Yi Communication Ability: Effective Visual Impairment: No Limitations Hearing Ability: Normal Psychologist Industrial Organizational Required: No Beliefs That Will Affect Care: None marital status: / Current Living Situation: Alone Current Living Situation Comment: [facility] WITH HER current occupational status: retired Other Information That Helps Us Care for You: No Feels Safe at Home: Yes Safety Concerns: Feels Safe At This Time Safety Concerns Comment: NONE Childhood Exposure to Second-Hand Smoke: Yes Seatbelt Use: always Review of Systems Review of Systems: All systems reviewed & are unremarkable except as noted in HPI & below Physical Exam Constitutional: well developed Eyes: + anicteric sclerae; + no PERRL (Left larger > right, pt reports chronic (both reactive)) ENMT: external ear and nose normal, oropharynx normal Neck: trachea midline, no thyromegaly Respiratory: + labored breathing, + retractions, + uses accessory muscles, + cough, able to speak in complete sentences and + audible wheezes Auscultation: + wheezes (throughout lungs, expiratory) Cardiovascular: RRR, no murmur, no edema Gastrointestinal (Abdomen): normal bowel sounds, soft, nontender, no hepatosplenomegaly Musculoskeletal: no cyanosis or clubbing, extremities motor strength 5/5 Skin: no rashes, warm and dry Neurologic: moves all extremities and awake; no focal motor deficits and not confused Speech / Cognition: normal speech Motor/Sensory: + sensory deficit (Toes b/l equal); no tremor and no pronator drift Psychiatric: A+Ox3, euthymic affect Genitourinary: no CVA tenderness Lymphatic: no cervical or axillary lymphadenopathy Results & Data Results & [facility] ([facility]) Vital Signs (Past 12 Hours) Vital Signs Temp Pulse Pulse Resp BP Pulse Ox 05/14/20 17:45 92 H 16 96 05/14/20 17:30 91 H 17 97 05/14/20 17:15 96 H 15 95 05/14/20 17:00 86 14 97 05/14/20 16:45 75 15 98 05/14/20 16:30 93 H 19 94 05/14/20 16:15 88 18 98 05/14/20 16:05 78 20 97 05/14/20 16:00 85 21 100 05/14/20 15:47 77 20 97 05/14/20 15:45 78 27 H 100 05/14/20 15:30 84 29 H 94 05/14/20 15:28 94 05/14/20 15:26 82 17 94 05/14/20 14:32 36.8 C 92 H 26 H 150/84 H 95 Diagnostic Findings XR chest 1V portable IMPRESSION: No acute cardiopulmonary findings. ECG Indication: SOB/dyspnea Rate (beats per minute): 71 Rhythm: normal sinus Findings: no acute ischemic change Comparison ECG Date: from (04 Sep 2016) Change: no significant change Code Status & VTE Plan Code Status Full as discussed with the patient VTE Prophylaxis Plan VTE Prophylaxis will be ordered: Yes PG Care Time/CCT Total # of Minutes Spent Total Time Spent with Patient: Total time spent is greater than 50% in coordination of care (as documented) at patient's floor/unit and/or counseling patient: Coding Level of Care Code 13821 Initial Inpt Care Lvl 3 Diagnoses Asthma exacerbation J45.41 Asthma persistence: persistent Asthma severity: moderate Shortness of breath on exertion R06.02 Restless legs syndrome G25.81 Peripheral neuropathy G62.9 Hypothyroidism E03.9 Hypothyroidism type: acquired Vitamin B12 deficiency (non anemic) E53.8 GERD (gastroesophageal reflux disease) K21.9 Adjustment disorder with depressed mood F43.21 Dyslipidemia E78.5 (1) Asthma exacerbation Asthma persistence: persistent Asthma severity: moderate Qualified Code(s): J45.41 - Moderate persistent asthma with (acute) exacerbation (2) Hypothyroidism Hypothyroidism type: acquired Qualified Code(s): E03.9 - Hypothyroidism, unspecified
[2020-05-14 19:40] LABS: C Reactive Protein < 0.29 mg/dl (0-0.29); Thyroid Stimulating Hormone 0.373 uIu/ml (0.300-4.500)
[2020-05-14] MEDS ORDERED: FLUTICASONE PROPIONATE NA SPR 16 GM BTL NAE PRN (20:38)
[2020-05-14] MEDS: SODIUM CHLORIDE 0.65% NA SOLN 45 ML (OCEAN) NAE SCH (21:06)
[2020-05-14] MEDS: GABAPENTIN 300 MG CAP PO SCH (21:06)
[2020-05-14] MEDS: PANTOprazole 40 MG TAB PO SCH (21:06)
[2020-05-14] MEDS ORDERED: methylPREDNISolone 40 MG in SYRINGE 0 ML IV STA (22:19)
[2020-05-14] MEDS: ALBUT/IPRATROP 3MG/0.5MG NEB 3 ML VIAL NEB SCH (22:50)
[2020-05-15] MEDS: ALBUT/IPRATROP 3MG/0.5MG NEB 3 ML VIAL NEB SCH ×6 (03:23→22:53)
[2020-05-15] MEDS: LEVOTHYROXINE SODIUM 75 MCG TABLET PO SCH (05:29)
[2020-05-15 06:56] LABS: Basophils # (auto) 0.01 K/uL (0-0.2); Basophils % (auto) 0.1 %; Hematocrit (blood only) 42.1 % (37-47); Hemoglobin 14.1 g/dL (12.0-16.0); Immature Granulocytes # (auto) 0.03 K/uL (0.00-0.02); Immature Granulocytes % (auto) 0.4 %; Lymphocytes # (auto) 0.86 K/uL (1.2-3.4); Lymphocytes % (auto) 11.8 %; Mean Corpuscular Hemoglobin 28.8 pg (25-34); Mean Corpuscular Hgb Conc 33.5 g/dL (32-36); Mean Corpuscular Volume 86.1 fL (80-100); Mean Platelet Volume 9.3 fL (7.4-10.4); Monocytes # (auto) 0.15 K/uL (0.11-0.59); Monocytes % (auto) 2.1 %; Neutrophils # (auto) 6.22 K/uL (1.4-6.5); Neutrophils % (auto) 85.6 %; Platelet Count 237 K/uL (130-400); RDW Coefficient of Variation 13.1 % (11.5-14.5); RDW Standard Deviation 41.3 fL (36.4-46.3); Red Blood Count 4.89 M/uL (4.2-5.4); White Blood Count 7.27 K/uL (4.8-10.8)
[2020-05-15 07:25] LABS: BUN Creatinine Ratio 17.1 (10-20); Calcium 9.4 mg/dl (8.5-10.1); Est GFR (African American) 66.9; Est GFR (Non-African American) 57.7; Potassium 4.1 mmol/L (3.5-5.1)
[2020-05-15] MEDS: CALCIUM CARBONATE 1250MG TAB PO SCH (08:11)
[2020-05-15] MEDS: methylPREDNISolone 40 MG in SYRINGE 0 ML IV SCH ×3 (08:11→20:02)
[2020-05-15] MEDS: CHOLECALCIFEROL 1,000 UNITS 25 MCG TAB PO SCH (08:12)
[2020-05-15] MEDS: ATORVASTATIN 10 MG TAB PO SCH (08:12)
[2020-05-15] MEDS: MONTELUKAST SODIUM 10 MG TABLET PO SCH (08:12)
[2020-05-15] MEDS: GABAPENTIN 100 MG CAP PO SCH ×2 (08:12→14:05)
[2020-05-15] MEDS: FLUTICASONE/VILANTEROL 100/25MCG 14 PUFFS/INHALER INH SCH (08:13)
[2020-05-15] MEDS: ESCITALOPRAM OXALATE 10 MG TAB PO SCH (08:13)
[2020-05-15] MEDS: UMECLIDINIUM BROMIDE 62.5MCG/BLISTER 7 PUFFS/INHALER INH SCH (08:13)
[2020-05-15] MEDS: CALCITRIOL 0.25 MCG CAPSULE PO SCH (08:13)
[2020-05-15] MEDS: SODIUM CHLORIDE 0.65% NA SOLN 45 ML (OCEAN) NAE SCH ×2 (08:14→20:07)
--- NOTE | 2020-05-15 12:05 | Electrocardiogram Report ---
Test Reason : Blood Pressure : / mmHG Vent. Rate : 071 BPM Atrial Rate : 071 BPM P-R Int : 126 ms QRS Dur : 080 ms QT Int : 392 ms P-R-T Axes : 074 073 049 degrees QTc Int : 425 ms Normal sinus rhythm Possible Left atrial enlargement Borderline ECG When compared with ECG of 04-SEP-2016 06:27, No significant change was found Confirmed by Johnny Saucedo ([id number]) on 05/15/2020 12:04:37 PM Referred By: Confirmed By:Johnny Saucedo
[2020-05-15] MEDS ORDERED: COUGH DROP (SUGAR FREE) LOZ 24 LOZ/1 BOX BUCCAL STA (14:43)
--- NOTE | 2020-05-15 18:29 | Hospitalist Progress Note ---
Date of Service May 15, 2020 Assessment & Plan (1) Asthma exacerbation: Acute respiratory failure in the setting of acute asthma exacerbation, resolved Severe persistent asthma at baseline current exacerbation improving. No CXR, lab findings to suggest PNA or COVID-19 and appears to be gradual worsening rather than anything acute over the last few days. Continue outpatient inhalers or hospital formulary equivalents and montelukast duonebs Q4Hr continue Methylprednisone 40mg IV TID hopefully will improve enough to get home tomorrow will try to set up outpt allergy to hopefully help w baseline control (for now would add antihistamine and nasal steroid at least to help w some degree of better baseline control) Concerning correlation of intermittent hand swelling, peripheral neuropathy and uncontrolled asthma concerning for possible autoimmune disease - ESR and CRP reassuring, PO pending. Consider further outpatient workup. (2) Shortness of breath on exertion: appears quite c/w her asthma flare. (3) Restless legs syndrome: Continue gabapentin, no complaints of this (4) Peripheral neuropathy: Continue gabapentin - unclear etiology from patient but had prior workup with [facility] neurology, outpt f/u (5) Hypothyroidism: TSH WNL Continue levothyroxine 75 mcg PO daily (6) Vitamin B12 deficiency (non anemic): Unclear if this caused peripheral neuropathy. Consider repeating as outpatient - last level normal in 2018 but not suspected to be contributing towards acute shortness of breath (7) GERD (gastroesophageal reflux disease): Continue pantoprazole 40mg PO QPM (8) Adjustment disorder with depressed mood: Continue lexapro 10 mg PO daily Lorazepam PRN (9) Dyslipidemia: Continue atorvastatin 10mg PO daily (10) DVT prophylaxis: ambulation (11) Discharge planning issues: would want to see a little more improvement, but hopefully home tomorrow - then outpt f/u w pulm and allergy Admission and Anticipated Discharge Date Admission Date: May 14, 2020 Subjective feeling better than yseterday. breathing better/easier. still tight cough. less dyspnea than yseterday though. notes that she's had a bad year or so with asthma getting worse - summer/hot/dry seems to make worse but also felt like it was bad last winter too. seeing pulmonary frequently. Review of Systems Review of Systems: All systems reviewed & are unremarkable except as noted in HPI & below Physical Exam Physical Exam: gen aao pleasant nad heent nc at mmm lungs good air entry on inhalation but still with fairly coarse b/l expiratory wheeze no accessory muscles good effort no conversational dyspnea. no focal neuro deficits Results & Data Results & Data ([facility]) Vital Signs (Past 12 Hours) Vital Signs Temp Pulse Pulse Pulse Resp BP BP 05/15/20 16:10 119 H 05/15/20 15:22 97.7 F 107 H 14 116/65 05/15/20 15:16 107 H 18 05/15/20 12:39 98.1 F 72 16 138/54 L 05/15/20 11:13 99 H 18 05/15/20 08:00 97.7 F 93 H 18 130/73 05/15/20 07:16 90 05/15/20 07:10 92 H 14 Pulse Ox 05/15/20 16:10 05/15/20 15:22 97 05/15/20 15:16 97 05/15/20 12:39 96 05/15/20 11:13 96 05/15/20 08:00 95 05/15/20 07:16 05/15/20 07:10 96 PG Care Time/CCT Total # of Minutes Spent Total Time Spent with Patient: Total time spent is greater than 50% in coordination of care (as documented) at patient's floor/unit and/or counseling patient: Coding Level of Care Code 14768 Subseq Hosp Care Lvl 3 Diagnoses Asthma exacerbation J45.41 Asthma persistence: persistent Asthma severity: moderate Shortness of breath on exertion R06.02 Restless legs syndrome G25.81 Peripheral neuropathy G62.9 Hypothyroidism E03.9 Hypothyroidism type: acquired Vitamin B12 deficiency (non anemic) E53.8 GERD (gastroesophageal reflux disease) K21.9 Adjustment disorder with depressed mood F43.21 Dyslipidemia E78.5 DVT prophylaxis Z29.9 Discharge planning issues Z02.9 (1) Asthma exacerbation Asthma persistence: persistent Asthma severity: moderate Qualified Code(s): J45.41 - Moderate persistent asthma with (acute) exacerbation (2) Hypothyroidism Hypothyroidism type: acquired Qualified Code(s): E03.9 - Hypothyroidism, unspecified
[2020-05-15] MEDS: PANTOprazole 40 MG TAB PO SCH (20:02)
[2020-05-15] MEDS: GABAPENTIN 300 MG CAP PO SCH (20:02)
[2020-05-16] MEDS: ALBUT/IPRATROP 3MG/0.5MG NEB 3 ML VIAL NEB SCH ×4 (03:34→15:47)
[2020-05-16] MEDS: LEVOTHYROXINE SODIUM 75 MCG TABLET PO SCH (05:41)
[2020-05-16] MEDS: UMECLIDINIUM BROMIDE 62.5MCG/BLISTER 7 PUFFS/INHALER INH SCH (07:46)
[2020-05-16] MEDS: GABAPENTIN 100 MG CAP PO SCH ×2 (07:46→13:11)
[2020-05-16] MEDS: ESCITALOPRAM OXALATE 10 MG TAB PO SCH (07:46)
[2020-05-16] MEDS: FLUTICASONE/VILANTEROL 100/25MCG 14 PUFFS/INHALER INH SCH (07:46)
[2020-05-16] MEDS: SODIUM CHLORIDE 0.65% NA SOLN 45 ML (OCEAN) NAE SCH (07:47)
[2020-05-16] MEDS: CALCITRIOL 0.25 MCG CAPSULE PO SCH (07:47)
[2020-05-16] MEDS: methylPREDNISolone 40 MG in SYRINGE 0 ML IV SCH ×2 (07:47→13:12)
[2020-05-16] MEDS: CALCIUM CARBONATE 1250MG TAB PO SCH (07:47)
[2020-05-16] MEDS: MONTELUKAST SODIUM 10 MG TABLET PO SCH (07:47)
[2020-05-16] MEDS: ATORVASTATIN 10 MG TAB PO SCH (07:47)
[2020-05-16] MEDS: CHOLECALCIFEROL 1,000 UNITS 25 MCG TAB PO SCH (07:48)
--- NOTE | 2020-05-16 13:25 | Discharge Summary ---
Date of Service May 16, 2020 Admission HPI Per Admitting Provider Chhaya Price us a 69 year old female with severe persistent asthma who presents to the ER on the advice of her vice president media relations due to with acute on chronic shortness of breath mainly on exertion. She notes no acute deterioration over the last few days. This has been more of a gradual deterioration over the last 4 weeks with her needing increasing albuterol use as per previous steroid taper had been weaned off. Associated chronic non-productive cough, worse at night. Usually her asthma is worse this time of year which she suspects is due to allergies and postnasal drip. She reports being out of her usual nasal spray for a few days but hasn't noticed a big increase in her PND. ROS concerning for possible autoimmune disorder with intermittent b/l hand MCP swelling, history of Grave's/Sanaz's disease and idiopathic peripheral neuropathy. She reports no prior evaluation by rheumatology. Admission Exam Per Admitting Provider Constitutional: well developed Eyes: + anicteric sclerae; + no PERRL (Left larger > right, pt reports chronic (both reactive)) ENMT: external ear and nose normal, oropharynx normal Neck: trachea midline, no thyromegaly Respiratory: + labored breathing, + retractions, + uses accessory muscles, + cough, able to speak in complete sentences and + audible wheezes Auscultation: + wheezes (throughout lungs, expiratory) Cardiovascular: RRR, no murmur, no edema Gastrointestinal (Abdomen): normal bowel sounds, soft, nontender, no hepatosplenomegaly Musculoskeletal: no cyanosis or clubbing, extremities motor strength 5/5 Skin: no rashes, warm and dry Neurologic: moves all extremities and awake; no focal motor deficits and not confused Speech / Cognition: normal speech Motor/Sensory: + sensory deficit (Toes b/l equal); no tremor and no pronator drift Psychiatric: A+Ox3, euthymic affect Genitourinary: no CVA tenderness Lymphatic: no cervical or axillary lymphadenopathy Principal Diagnosis asthma exacerbation Discharge Exam Constitutional WD/WN, vitals as above Eyes PERRL, conjunctivae normal, anicteric sclerae ENMT external ear and nose normal, oropharynx normal Neck normal visual inspection Respiratory - good air movement - right lung with slight inspiratory wheeze in all knowles Cardiovascular RRR, no murmur, no edema Psychiatric A+Ox3, euthymic affect Discharge Data Allergies Allergy/AdvReac Type Severity Reaction Status Date / Time codeine Allergy Intermediate Hives Verified 05/14/20 16:37 theophylline Allergy Unknown HIVES/DIZZI Verified 05/14/20 16:37 NESS Consultations 05/14/20 16:39 ED Decision to Admit Stat Hospital Course (1) Asthma exacerbation: Asthma exacerbation: Severe persistent, concerning that allergies are her trigger No CXR, lab findings to suggest PNA or COVID-19 and appears to be gradual worsening rather than anything acute over the last few days. Continue outpatient inhalers or hospital formulary equivalents and montelukast duonebs Q4Hr while inpatient Methylprednisone 40mg IV TID while inpatient - ordered outpatient prednisone taper 60mg 2days, 50mg 2days, 40 mg 2days, 30mg 2days, 20mg 2 days, 10mg 2days - started Cetirizine 10 mg daily - started flonase - will need follow up with allergy to further evaluate allergy as a potential trigger XR chest 1V portable CLINICAL HISTORY: Dyspnea COMPARISON STUDY: Chest radiograph July 19, 2019. FINDINGS: Lung volumes are normal. Lungs are clear. There is no pneumothorax or pleural effusion. Cardiac size is normal. Mediastinal contours are normal. There is no evidence for pulmonary edema. IMPRESSION: No acute cardiopulmonary findings. Concerning correlation of intermittent hand swelling, peripheral neuropathy and uncontrolled asthma concerning for possible autoimmune disease. - balwinder +, CRP nl. - Consider further outpatient workup. Shortness of breath on exertion: Initially discussed getting TTE to assess cardiac cause however given significance of exp. wheeze on exam, improvement with prior steroid/inhaler use; SOB appears to be definitively lung related. Although not significantly hypoxic at rest, consider 2 step at discharge as suspect this is when she is significantly SOB. Restless legs syndrome: - continued Gabapentin and discharged on same Peripheral neuropathy: - continue gabapentin - unclear etiology from patient but had prior workup with [facility] neurology Hypothyroidism: TSH WNL Continue levothyroxine 75 mcg PO daily Vitamin B12 deficiency (non anemic): Unclear if this caused peripheral neuropathy. Consider repeating as outpatient - last level normal in 2018 but not suspected to be contributing towards acute shortness of breath GERD (gastroesophageal reflux disease): Continue pantoprazole 40mg PO QPM Adjustment disorder with depressed mood: Continue lexapro 10 mg PO daily Dyslipidemia: Continue atorvastatin 10mg PO daily Total Time Total Time Spent Total Time Spent (In Minutes): <30 Discharge Plan Discharge Items Patient Disposition: Home - Self-Care Reason For Visit: ASTHMA EXACERBATION Discharge Diagnosis: asthma exacerbation Condition on Discharge: Good Activity: Per Instructions section Non-emergency contact: Primary Care Provider and Equipment Validation Specialist Call non-emergency contact if: your symptoms worsen Follow-up/Referrals: Johnny Holland MD [Physician] - 05/27/20 9:15 am (You have an appointment with Dr. Holland on May 27 at 9:15. If you can not keep this appointment please call [phone]) Demario Varela MD [Primary Care Provider] - Mariana Mayfield PA-C [Physician Pull Tab Dealer] - 05/23/20 2:15 pm (You have an appointment with Mariana Mayfield on May 23 at 2:15. If you can not keep this appointment please call [phone]) Preston Chavez MD [Physician] - 06/13/20 1:20 pm (You have an appointment with Dr. Chavez on June 13 at 1:20. The office is going to try and move this appointment to a sooner date. For any questions please call [phone].) Diet: Regular Addtl Attending Provider Instructions: Asthma You had worsening of your asthma that brought you into the hospital. It is unclear at this time what your trigger for this worsening of your asthma is. It looks like allergies may play a role. New medications You should continue to take your home controller medications that you were on prior to coming to the hospital. You have 3 new medications that will target your allergies and hopefully improve your symptoms. - Prednisone 60 mg for 2 days 50 mg for 2 days 40 mg for 2 days 30 mg for 2 days 20 mg for 2 days 10 mg for 2 days - Flonase an nasal steroid that you can take one puff in each nostril daily - Cetirizine daily. Follow up You will need to follow up with your vice president media relations and primary doctor after leaving the hospital. You should try to follow up in the next 7 days. You will also need to follow up with an pipeline dispatcher to further evaluate if your allergies are contributing to your asthma and if there are specific allergens to avoid. Return precautions If you have worsening of your breathing and shortness of breath we will want you to call or come in to get evaluated. Pending Studies at Discharge: No Stand-Alone Forms: My [facility] [employer], Smoking Cessation Medications and DC Order Prescriptions: New fluticasone propionate [Flonase Allergy Relief] 50 mcg/actuation spray,suspension 1 sprays INTNAS DAILY Qty: 9.9 RF: 0 cetirizine 10 mg capsule 10 mg PO DAILY 30 Days Qty: 30 RF: 2 prednisone 10 mg tablet See Rx Instructions .ROUTE .COMPLEX Qty: 42 RF: 0 Continued atorvastatin 10 mg tablet 10 mg PO DAILY Qty: 90 RF: 3 Symbicort 160-4.5 mcg/actuation HFA aerosol inhaler 2 puffs INH BID Qty: 10.2 RF: 6 escitalopram oxalate 10 mg tablet 10 mg PO DAILY Qty: 90 RF: 3 benzonatate 100 mg capsule 100 mg PO TID PRN (Reason: Cough) RF: 0 calcium carbonate [Calcium 600] 600 mg calcium (1,500 mg) tablet 600 mg PO QAM RF: 0 fluticasone propionate 50 mcg/actuation spray,suspension 2 sprays INTNAS DAILY PRN (Reason: Allergy Symptoms) RF: 0 Spiriva with HandiHaler 18 mcg capsule, w/inhalation device 1 cap INH QAM RF: 0 ipratropium bromide 0.02 % solution 0.5 mg inhalation Q4H PRN (Reason: shortness of breath) RF: 0 cholecalciferol (vitamin D3) [Vitamin D3] 25 mcg (1,000 unit) Capsule 0 mcg PO DAILY RF: 0 levothyroxine 75 mcg tablet 75 mcg PO QAM RF: 0 lorazepam 0.5 mg tablet 0.5 mg PO BID PRN (Reason: Anxiety) RF: 0 pantoprazole 40 mg tablet,delayed release (DR/EC) 40 mg PO QPM RF: 0 montelukast 10 mg tablet 10 mg PO QAM RF: 0 gabapentin 100 mg capsule 100 mg PO DIRECTED RF: 0 levalbuterol HCl 1.25 mg/3 mL solution for nebulization 1.25 mg inhalation Q4H PRN (Reason: Shortness Of Breath) RF: 0 albuterol sulfate 90 mcg/actuation HFA aerosol inhaler 2 puff inhalation Q4H PRN (Reason: Shortness Of Breath Or Wheezing) RF: 0 calcitriol 0.25 mcg capsule 0.25 mcg PO QAM RF: 0 Discharge Orders: Discharge Order (Routine); Ordered 05/16/20 Ordered By: Indio Culver Admission Data Admit Date/Time: 05/14/20 19:13 Attending Provider: Sachin Huber Admit Provider: Giovanny Burrows Primary Care Provider: Demario Varela Other Providers: Giovanny Burrows Other Interventions: Discharge Summary Assessment (RN) Last Done: 05/16/20 13:21 DC Date/Time DO NOT enter until pt leaves facility: 05/16/20 16:52 Supervising Physician Co-Signing Physician Notes I personally examined the patient and verified all pulido points of history and exam, discussed case, and agree with decision making with Dr Culver. feeling better and up to going home. updated on plans vitals noted aao pleasant nad heent nc at mmm lungs clear on inspiration fairly clear expiration very mild exp wheeze far improved from yesterday no r/r good e ffort no accessory muscle use. asthma exacerbation -suspect allergic triggers, and since she's been doing fairly poorly would appreciate outpt allergy input -stable for home -steroid taper -continue home inhalers -for now pending allergy eval will add antihistamine and nasal steroid to try to mitigate allergic trigger as much as possible otherwise as above CBC Results Results Complete Blood Count Results: RBC 4.89 M/uL (4.2-5.4) 05/15/20 WBC 7.27 K/uL (4.8-10.8) 05/15/20 Hgb 14.1 g/dL (12.0-16.0) 05/15/20 Hct 42.1 % (37-47) 05/15/20 Plt Count 237 K/uL (130-400) 05/15/20 Results BMP Results: Sodium 139 mmol/L (136-145) 05/15/20 Potassium 4.1 mmol/L (3.5-5.1) 05/15/20 Chloride 108 mmol/L (98-107) H 05/15/20 BUN 17 mg/dl (7-18) 05/15/20 Creatinine 0.99 mg/dl (0.6-1.2) 05/15/20 Glucose 130 mg/dl (70-99) H 05/15/20 Resident Activity Tracking Resident Involvement: Resident Care Provided Care Provided: Adult Hospital Medicine
[2020-05-16 14:55] LABS: Anti Nuclear Antibody Screen POSITIVE (NEGATIVE)
--- NOTE | 2020-05-16 18:43 | Billing Data ---
Date of Service May 16, 2020 Coding Level of Care Code D/C Day Management <30 mins
[2020-05-17 14:06] LABS: ANA Pattern Nuclear, Speckled
== END 2020-05-16 16:52 | disposition home or self-care (01) | DRG 202 ==
LOC: ED 14:27 → SUATTDRO 19:13 → 2N 19:13